=== PATIENT | female | born 1970 | race Caucasian/White ===

== ENCOUNTER 2016-03-26 18:01 | Inpatient (IN) | payer BC, OTHER ==
[~2016-03-26] VITALS: Ht 165.1 cm; Wt 111.6 kg
[2016-03-26 22:46] VITALS: BP 122/85; PULSE 92; TEMP 36.8; Ht 165.1 cm; Wt 111.6 kg
[2016-03-26] MEDS ORDERED: VENL150C PO (23:15)
[2016-03-26] MEDS ORDERED: NURSING VERBAL MED ORDER ONE (23:15)
[2016-03-26] MEDS ORDERED: LSN/2025 PO (23:15)
[2016-03-26] MEDS ORDERED: FAMO20TA11 PO (23:16)
[2016-03-26] MEDS ORDERED: PHEN37.585 PO (23:16)
[2016-03-26] MEDS ORDERED: BISMUTH SUBSALICYLATE PER ML OMNICELL CHARGE PO PRN (23:30)
[2016-03-26] MEDS ORDERED: SODIUM CHLORIDE 0.65% NA SOLN 45 ML (OCEAN) PRN (23:30)
[2016-03-26] MEDS ORDERED: ALUMINUM/MAGNESIUM SUSP 30 ML UDC PO PRN (23:30)
[2016-03-26] MEDS ORDERED: ACETAMINOPHEN 325 MG TAB PO PRN (23:30)
[2016-03-26] MEDS ORDERED: MAGNESIUM HYDROXIDE SUSP 30 ML UDC PO PRN (23:30)
[2016-03-26] MEDS ORDERED: hydrOXYzine HCL 25 MG TAB PO PRN ×2 (23:30)
[2016-03-27 06:57] VITALS: BP_SYST 114; BP_SYST 124; BP_DIAS 68; BP_DIAS 82; PULSE 73; PULSE 89; TEMP 36.9
[2016-03-27] MEDS ORDERED: LISINOPRIL/HCTZ 20/25MG TAB PO SCH (10:00)
[2016-03-27] MEDS ORDERED: VENLAFAXINE HCL XR 150 MG CAPXR PO SCH (10:00)
[2016-03-27] MEDS ORDERED: FAMOTIDINE 20 MG TAB PO SCH (10:00)
[2016-03-27] MEDS ORDERED: VENLAFAXINE HCL XR 37.5 MG CAPXR PO ONE (10:30)
--- NOTE | 2016-03-27 11:24 | Medical Student: BHU Only ---
Psychiatric Evaluation Date of Service: Mar 27, 2016. IDENTIFYING DATA: Pat Duff is a 45-year-old female who currently lives in [place], [place] with her , two sons, one abeon, and a son's girlfriend. Pat Duff was admitted to the [facility] on a 201 voluntary commitment. Pat Duff was brought to the hospital by transfer from [facility]. Information provided by the patient is considered to be reliable. CHIEF COMPLAINT: "stressed and not being able to cope with it". HISTORY OF PRESENT ILLNESS: Pat Duff is a 45 year old female who presented to [facility] on 03/26/16 with complaints of depression and suicidal thoughts. She reported at that time that she had thought about driving her car into the guardrails. Today, she explains that she has been feeling sad, depressed, and worthless since "forever". She said she has been feeling depressed over the last several months due to many life stressors. She says that her 's [id number] in a motorcycle accident, her 's brother committed suicide, and after these events her "clammed up" and won't talk to her about things. She says that her then started speaking to a female family friend who lives in [place] "all day everyday" and that this relationship upsets her. The family friend may be moving back to their town and reportedly has cancer, so she is concerned about how this relationship will continue with her . She and her got in October of 2015, but have been living together for the past 6 years. Her 15 year old stepson moved in with them in July and says that relationship "has it's moments". She says that she is most upset about her relationship with her and when asked why she decided to go to the hospital yesterday she admits she was " trying to get my 's attention." According to the note from the ED, she attempted to contact him to bring her some belongings and he refused. She said she has been in contact with him since arriving on the [facility] and she is willing to request a family meeting by phone with him. She says she has tried talking to him many times about how she is feeling, but cannot get his attention. When asked about her suicidal ideation she said she "would never do that to my kids" and that the thought about using her car was after an episode where she was driving really fast and her asked her what she was thinking and she told him she was thinking of driving into the guardrails. She denies that she actually was thinking of doing that, but thought of it when her asked the question. She denies having any other episodes of reckless behavior. The patient denies ever having any other suicidal thoughts or plans and has no history of ever harming herself or attempting suicide. Pat states that she has not had any changes in appetite or weight recently. She did start Phentermine in October for weight loss and has lost 30 pounds since that time. She describes that she is still able to get enjoyment out of things and enjoys being with her family, listening to music, and dancing. She says she does have trouble with sleep, mostly because she works swing shift and also because the kids or the animals wake her up at all hours. She says she sleeps about 4 hours a day. She does consume 2-3 bottles of mountain dew every day. She denies any symptoms of omari. Pat also describes "anxiety attacks" that happen a couple times a week where she gets dizzy and lightheaded and she feels her blood pressure rising. She denies ever having chest pain or shortness of breath with these episodes and says they are all triggered around her . She does not spend significant time worrying about having another attack. She says she does not generally worry more than most people would. She expresses that she would like to go home soon because she misses her family. Pat says she started an antidepressant in 2005 after the of her father, which she said helped her depression. A few months ago she was taken off that antidepressant and started on Effexor. She thinks she was changed because of perimenopausal symptoms such as hot flashes, but cannot remember what the prior antidepressant was. The Effexor was increased to 150 mg around [place] time. She thinks it has helped with her hot flashes, but does not think her mood has improved. Risk of violence to self within the last 6 months: no Risk of violence to others within the last 6 months: no CURRENT MEDICATIONS: 1. Effexor XR 150 mg po 2. Lisinopril-Hydrochlorothiazide 20-25 mg po 3. Pepcid 20 mg po 4. Phentermine HCl 37.5 mg po PAST PSYCHIATRIC HISTORY: Current outpatient mental health treatment: PCP is prescriber Prior outpatient mental health treatment: none Prior psychiatric hospitalizations: none Prior medication trials: Effexor was increased around [place] time, she was on an unknown antidepressant from [id number] Prior suicide attempts: none Access to weapons: no PAST MEDICAL HISTORY: Current primary care practitioner is Dr. Little at [facility] in [place], [place] medical history: obesity, hypertension, GERD surgical history: tubal ligation history of head injury: no history of seizure: no history of iv drug use: no ALLERGIES: NKDA FAMILY HISTORY: Mental Health: none Substance Abuse: none Suicide: none Medical history: father - obesity, hypertension; mother - thyroid disease, hypertension SUBSTANCE USE HISTORY: Tobacco use hx: none Caffeine use hx: 2-3 bottles of mountain dew daily Alcohol use hx: consumes 3-4 beverages 2-3 times per month, no history of alcohol abuse Substance abuse hx: none PERSONAL HISTORY: Born: lived in [place] since age of 6, father lives in [place], mother lives 2 houses from the patient. Pat says her mom tries to support her, but constantly tells her to get out of her relationship, which Pat describes as a stressor. 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 She was never previously , but was in a relationship for 20 years with the father of her children. Children: 21 year old son, 14 year old son, and 15 year old stepson Spiritual Affiliation: none Legal History: none Physical abuse history: none Emotional/psychological abuse history: none Sexual abuse history: none ROS: CONSTITUTIONAL: feeling tired HEENT: denies headaches, difficulty swallowing SKIN: denies rashes CARDIOVASCULAR: denies chest pain RESPIRATORY: denies shortness of breath GASTROINTESTINAL: denies nausea, vomiting, constipation, diarrhea GENITOURINARY: denies trouble with urination NEUROLOGICAL: denies confusion, numbness, tingling MUSCULOSKELETAL: denies muscle aches, joint problems PSYCHIATRIC: as above MENTAL STATUS EXAM: Appearance is that of a neatly groomed, casually dressed female who appears her stated age. The patient is generally cooperative with the interview. Eye contact is normal. Motor behavior is normal. Speech: normal volume, rate, tone. Affect: congruent. Mood: "sad and depressed" . Thought process: goal directed. Thought content: no obsessions, compulsions, or delusions. Perception: no hallucinations. Cognition: The patient is oriented. Intelligence is estimated to be average. Insight is estimated to be limited. Judgment is estimated to be limited. INVENTORY OF ASSETS: * strengths: "I used to have a personality", "I'm a good listener, I guess", has children she cares for, has hope her relationship with her will improve * resources: her mother "tries to help me" * needs: outpatient counselor, couples counseling with her RISK ASSESSMENT: * Risk factors (select all that apply): , Health Problems, Mental Health Diagnoses (depression), Hopelessness * Protective factors (select all that apply): , Responsible for young children, Employed DIAGNOSTIC IMPRESSION: Pat Duff is a 45 year old female who presented with depression and suicidal thoughts. She describes significant relationship stressors with her and admits her hospitalization was an attempt to get her 's attention. The patient meets criteria for major depressive disorder. She may also have an underlying personality disorder. Included in the differential are borderline personality disorder, dependent personality disorder, or histrionic personality disorder. This will be further evaluated during her stay on the [facility]. RECOMMENDATIONS: 1. Major depressive disorder a. Increase Effexor 150 mg to 187.5 mg b. Reviewed the risks, benefits, and side-effects of Effexor and patient is in agreement with initiating this treatment. 2. Hypertension a. Continue Lisinopril-Hydrochlorothiazide 20-25 mg 3. GERD a. Continue Pepcid 20 mg 4. Obesity a. Hold Phentermine HCl 37.5 mg b. Given that the patient's BMI is 40, a dietary consult will be placed to educate the patient as to steps he can take to help reduce further weight gain and increase the patients knowledge around appropriate food choices 5. Suicide precautions will be maintained to help provide for patient safety while in the hospital. 6. Aftercare Planning: a. We will make an aftercare appointment with either the patient's PCP Dr. Little or with a psychiatrist near her home, if available b. We will make an aftercare appointment with a outpatient therapist to address issues/needs that have been identified during the stay in the hospital.
--- NOTE | 2016-03-27 12:31 | HISTORY & PHYSICAL EXAMINATION ---
DATE OF ADMISSION: 03/26/2016 IDENTIFYING INFORMATION: aPt Duff is a 45-year-old white female from [place], [place], who has a history of depression treated by her PCP and presented to an outside hospital Emergency Room yesterday with depression and suicidal ideation. She was transferred here for voluntary admission. CHIEF COMPLAINT: "Stress and not being able to cope with it." HISTORY OF PRESENT ILLNESS: This is the patient's first psychiatric hospitalization and first episode of care in our facility. She presented to [facility] Emergency Room yesterday reporting depression and suicidal ideation with thoughts to crash her car to kill herself. She states that she got in October 2015 to a man whom she had been with for 5 years and living with for 4 years, and over the past couple of months their relationship has caused a lot of distress for her. She says that "a lot has happened since June of last year," as her 's ex-'s brother in a motorcycle accident and his brother committed suicide, and since these things happened he has "clammed up, does not want to talk, which is bad for me." She also states an old female friend of his "came back into the picture" and although this woman lives elsewhere, he has been talking to her on the phone "all day every day, and I just kind of got pushed to the back burner. He tells me he loves me, but I still can't get him to talk to me, get him to understand where I come from." She has tried to talk to him about this, but feels he does not hear her and does not change his behavior. She says that yesterday she "got myself all worked up, my blood pressure went up, an anxiety attack...I just walked out and drove myself to the hospital, didn't even tell him where I was going." She denies any specific trigger that occurred yesterday and says she has been feeling depressed and overwhelmed for the past 2 months. She admits to suicidal thoughts, specifically thoughts of crashing her car into a guardrail, and states that about 3 weeks ago she was driving fast and thinking about running her car off the road. She does not think she would act on this, as she has children and says she would never want to hurt them. She says she went to the hospital yesterday because "I was just trying to get my 's attention." She does have hope that the relationship will improve, although she says her mother tells her that it is harming her health and that she should get out of the relationship. She says "a lot of the stuff I do is to get his attention. I have always felt like I am not good enough, too busy trying to keep everyone else happy." Mood is "sad and depressed and worthless." She denies changes in appetite, but admits she has been taking a diet pill prescribed by her PCP for months and has lost 30 pounds in the past 5 months. She denies that the diet pill has coincided with the period of increased anxiety or decreased sleep. She endorses hopelessness, low energy, crying spells and chronically impaired sleep. She works a swing shift where she is 7 days on one shift, 2 days off, and then switches to a different shift, so is always sleeping at different times. She also has multiple cats and dogs, as well as multiple children living in the home, so is frequently being woken up at night. She estimates she gets about 4 hours of sleep at night and cannot recall the last time she got a full uninterrupted night of sleep. She falls asleep without difficulty, but wakes up frequently, often due to animals making noises. She denies anhedonia, stating she still enjoys spending time with her children, listening to music and dancing. She denies symptoms of omari now or in the past and denies symptoms of psychosis. She admits to feeling anxious when she is stressed out and this is usually triggered by interactions with her . Her heart races and she thinks her blood pressure goes up during these incidents and she occasionally has chest discomfort as well, but denies other symptoms of panic. These episodes occur a couple times a week. She admits to worrying about "just normal stuff, bills and money," but denies symptoms of generalized anxiety disorder. PAST PSYCHIATRIC HISTORY: The patient was diagnosed with depression by her PCP about 6 years ago. She was treated with 2 different antidepressants, which she cannot recall, one of them caused weight gain, so she was switched to another one which worked, but several months ago was switched to Effexor XR due to premenopausal symptoms. Her dose was increased to 150 mg several weeks ago. She is not sure if it is working or not. She has never seen a psychiatrist or a therapist and has never been admitted to a psychiatric unit. She denies any history of suicide attempts, self-injurious behavior or violence towards others. She denies access to guns. PAST MEDICAL HISTORY: PCP is Dr. Little at [facility] in [place]. 1. Obesity with BMI of 40.942 and weight of 246 pounds. 2. Hypertension. 3. GERD. 4. Status post bilateral tubal ligation. 5. The patient denies a history of head injuries, seizures, diabetes, hyperlipidemia, or heart disease. FAMILY HISTORY: The patient denies any family history of mental illness, substance abuse or suicides. Medically, father is obese with hypertension; and mother has hypertension and thyroid disease. She does not know of a family history of diabetes, hyperlipidemia, or heart disease. ALLERGIES: No known drug allergies. HOME MEDICATIONS: Venlafaxine XR 150 mg daily, Pepcid 20 mg daily, HCTZ/lisinopril 20/25 mg 1 tablet p.o. daily, phentermine 37.5 mg 1 tablet daily. SUBSTANCE ABUSE HISTORY: The patient denies nicotine use. She drinks 2-3 bottles of Mountain Dew daily. She drinks alcohol 2-4 times a month, typically 3-4 Smirnoff beverages at a time. She denies any history of problems stemming from her drinking, alcohol withdrawal or treatment for substance abuse. She scored a 3 on the audit. She denies any history of using recreational drugs, abusing illicit drugs, abusing prescription medications, pnek-lui-kphdnch medications, inhalants or organics. She has no history of substance abuse treatment. SOCIAL HISTORY: The patient grew up in [facility]. She lives in [place]. Both parents are living. Her father is in [place], and her mother lives 2 houses away from her. She says her relationship with her mother is strained because "she tries to support me, but she just keeps telling me to get out of my relationship, but I don't want to get out." She has a sister and a half-brother who do not live nearby, but says she has a good relationship with them. She has been living with her since 2011, and they in October 2015 after a 5-year relationship. Prior to that she was with her children's father for 20 years, but they never . She currently lives with her , her 2 children, sons age 21 and 14. Her older son's girlfriend, and her 15-year-old stepson who just moved in with them in July, and at times this has been challenging. They also have multiple animals, 4 dogs and 4 cats. 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 She has been there for about 2 years and likes her job. She denies catholic beliefs, legal problems and a history of psychological trauma or abuse. STRENGTHS: "I used to have a personality. I'm a good listener." REVIEW OF SYSTEMS: Ten systems were reviewed and positive for a headache, but others are negative except as stated above. LABORATORY: Labs were done at the outside hospital emergency room. Urinalysis was negative. Drug screen was negative. Alcohol level was negative. test was negative. TSH was normal at 3.303, metabolic panel showed slightly low potassium at 3.4, elevated glucose at 114. LFTs were normal. CBC showed slightly low MCHC and MCH at 31.4 and 25.5 respectively, and elevated platelets at 448. VITAL SIGNS: Temperature 36.9, pulse 73, respiratory rate 16, blood pressure 124/82. PHYSICAL EXAMINATION: Physical exam performed in the Emergency Room by Dr. Alfredo Coates was reviewed and accepted for the purposes of this admission. MENTAL STATUS EXAMINATION: This is an overweight white female who appears her stated age. She is casually dressed and adequately groomed and seated in no acute distress. Gait and station are normal. She has increased psychomotor activity and is jiggling her leg constantly throughout the interview. Eye contact is avoidant, but improves as the interview progresses. Speech is normal rate, volume, and tone. She is cooperative with the interview. Mood is "sad, depressed and worthless." Affect is restricted to depressed and anxious, congruent with stated mood. She is tearful frequently throughout the interview. Thoughts are linear and goal directed. She admits to suicidal thoughts triggered by problems with her with thoughts to drive her car into a guardrail. She denies homicidal thoughts, hallucinations and paranoia. No delusions are evident. She is alert and fully oriented. Memory, attention and language are grossly intact per interview. Level of intelligence estimated to be average. Insight and judgment are impaired. RISK ASSESSMENT: Risk factors include race, previous psychiatric diagnosis, depressive symptoms, anxiety symptoms, suicidal ideation with access to the means, recent unsafe behavior including driving her car at high speeds, marital strain, poor support, no outpatient providers. Protective factors include denies access to guns. Denies a history of suicide attempts, self-injurious behavior or violence towards others, willing for treatment, is , employed and has responsibility for children. DIAGNOSES: 1. Major depressive disorder, recurrent, severe, without psychosis. 2. Caffeine use disorder. 3. Obesity. 4. Gastroesophageal reflux disease. ASSESSMENT: Pat Duff is a 45-year-old recently white female who has a history of depression which has been exacerbated by marital strain. Mood has been worsening for the past couple of months and she has suicidal thoughts to crash her car, although feels her children are protective and does not think she would act on these. She has been switched to venlafaxine XR due to perimenopausal symptoms, which is not a bad choice of antidepressants, but she may need a higher dose. In addition, there are significant psychosocial stressors impacting her mood and she would benefit from addressing these in a family meeting with her , and then through outpatient counseling both individual and couples. There may also be some Austell II issues as she indicates fear of abandonment and possible dependent traits in her description of her marriage. TREATMENT PLAN: 1. Depression: The patient has been on Effexor XR for 1-2 months and is tolerating it well. We will increase her dose by adding a 37.5 mg tab to her 150 mg tab daily. We also reviewed other ways to impact her depression including engaging in therapy and improving self-care, including minimizing caffeine, working on better sleep hygiene, and eating a healthy diet. She denies that her diet pill has exacerbated her insomnia or anxiety, but would monitor that closely. Also, discussed the importance of taking medications regularly, as she sometimes takes them erratically due to working the swing shift. Will recommend a family meeting with her , which likely need to be by phone. 2. Impaired sleep: Discussed importance of sleep hygiene and working on improving her sleep, as she has chronically inadequate sleep, which is likely exacerbating depressive and anxiety symptoms. Encouraged her to minimize caffeine and ensure she has adequate time for sleep each night, minimizing interruptions and noise. The patient will need ongoing education about the importance of sleep and ways to improve hers given that this is a longstanding problem. 3. Suicidality: Safety checks here. Work on healthy coping skills and a discharge safety plan, encouraged participation in unit groups and programming. 4. Obesity: Educate the patient about healthy diet, exercise and encourage continued work on weight loss. Phentermine will be held here as it is nonformulary and due to concerns for worsening sleep and anxiety. 5. Gastroesophageal reflux disease: Continue home medication. 6. Hypertension: Continue home medication and coordinate care with PCP. 7. Aftercare: The patient will need referred for outpatient therapy and possibly psychiatric services in her home area. If psychiatry is not available, perhaps her PCP would be comfortable to continue prescribing the antidepressant for her, as therapy is likely the more important of the two in her situation. [id number]. MTDD
[2016-03-27] MEDS ORDERED: EFFSR375 PO (19:12)
[2016-03-27] MEDS ORDERED: ATR25 PO (19:12)
[2016-03-27] MEDS ORDERED: VENL150C PO (19:12)
--- NOTE | 2016-03-27 19:21 | Discharge Instructions ---
Discharge Information Report Includes Report will include the: Discharge Instructions & Summary Admission Admission Date / Time: Mar 26, 2016 at 21:45 Reason for Admission: Depression Discharge Discharge Diagnosis / Problem: major depressive disorder Condition at Discharge: Good Discharge Goals Goal(s): Improve function, Improve disease control Activity Recommendations Activity Limitations: resume your previous activity . Instructions / Follow-Up Instructions / Follow-Up . SPECIAL CARE INSTRUCTIONS: 1. Follow through with your scheduled aftercare appointments. If unable to keep an appointment, please call to reschedule. 2. Take your medication only as prescribed. Medication should not be changed or stopped without the approval of your doctor. In the event of worsening symptoms or concerns about side effects, contact your doctor immediately. 3. Utilize new healthy coping skills, anger management skills, and stress management skills learned during your hospitalization. Journal feelings and process them with a support person. Identify stressors or situations that may result in relapse, deterioration or inappropriate behaviors and develop a plan to deal with those issues. 4. If your coping skills are ineffective and you are in crisis, contact your outpatient providers for direction. If unable to reach your providers, please call the CAN HELP LINE AT or go to the closest Emergency Room. 5. Avoid alcohol and un-prescribed drugs. 6. You have been provided with the Mental Health Advance Directives Pamphlet for your review. AFTERCARE APPOINTMENTS: * Please call your insurance company prior to your scheduled appointment to confirm your aftercare providers are covered. Take your insurance information to your appointments. . Discharge / Aftercare Planning Primary Care Physician: Name: [facility], Dr Little Appointment Notes: Call to schedule Psychiatrist: Name: [facility] information Phone Number: [phone] Railroad Car Cleaning Supervisor: Name: [facility] Appointment Notes: call for referral information Other: Name of Appointment #1: Crisis # Appointment #1 Notes: 24 hr crisis number reviewed that [facility] is a local therapy agency, may call [facility] for an appt at [phone] in addition to numbers above keep appt with Dr. Little at [facility] on 03/29/15 9:45 am as scheduled. . Follow-Up Care Plan for Follow-Up Care: therapy and ongoing medication monitoring are recommended Current Hospital Diet Patient's current hospital diet: Regular Diet Discharge Diet Recommended Diet: Regular Diet Procedures Procedures Performed: No Pending Studies Pending Studies at Discharge: No Medical Emergencies . Who to Call and When: Medical Emergencies: For questions or emergencies related to your hospital stay, please contact the Inpatient Behavioral Health Unit at [phone]. A traffic i manager is on-call 01/10 for the Behavioral Health Unit for emergencies At any time you feel your situation is an emergency, you may also call 911 immediately. . Non-Emergent Contact Non-Emergency issues call your: Primary Care Provider Advance Directives Existing Advance Directive: No Do You Have an Existing Mental: No Existing Living Will: No Existing Power of Pharmacy Services Director: No Advance Directives Info Given: To Pt/S.O. Discharge Summary Admission HPI Per the Admitting provider: see H&P, transfer from [facility] due to SI with plan to crash car. Admission Exam Per the Admitting provider: see H&P. Consultations none Hospital Course (1) Major depressive disorder, recurrent episode with anxious distress The patient is admitted to [facility] ([facility] inpatient mental health unit) on q 15 min checks (behavioral with suicide precautions) for safety. The patient will participate in group, recreational and milieu therapies and will be offered additional individual and family sessions as clinically appropriate. The patient met with Dr. Desai on day of admission and is was agreed to increase her Effexor XR to 187.5 mg. The patient essentially denied suicidal ideation. She was cooperative with unit routine and later in day signed a 72 hour notice to withdrawal from treatment. scallop shucker provider was contacted to evaluate given extenuating circumstances of patient's step daughter being in a serious car accident. Patient requested discharge to attend to family matters and was able to arrange transportation home by her mother who also supports immediate discharge. Risk Factors Assessment Access to guns: No Mental Health Diagnoses: Yes Previous attempt: No Protective Factors Assessment : Yes Responsible for young children: Yes Employed: Yes Day of Discharge Assessment Patient was reassessed for discharge. She does not meet criteria for involuntary commitment. She is denying SI and was able to verbalize safety plan. She received prn Vistaril for anxiety related to step daughter's health with benefit and was calm. She contracted not to drive. She will be with family overnight and has f/u with her PCP within 48 hours of discharge. She is aware that her course of treatment ended abruptly at her request. Tobacco Cessation at Discharge FDA approved Prescription: non-smoker
[2016-03-28] MEDS ORDERED: VENLAFAXINE HCL XR 37.5 MG CAPXR PO SCH (09:00)
== END 2016-03-27 21:25 | disposition home or self-care (01) | DRG 885 ==
LOC: C.MHU 21:45
PROVIDERS: ADMIT Psychiatry & Neurology Psychiatry; ATTEND Psychiatry & Neurology Psychiatry
DX: F33.2 Major depressive disorder, recurrent severe without psychotic features (principal); Z68.41 Body mass index [BMI] 40.0-44.9, adult; E66.9 Obesity, unspecified; I10 Essential (primary) hypertension; K21.9 Gastro-esophageal reflux disease without esophagitis